=== PATIENT | female | born 1955 | race Caucasian/White ===

== ENCOUNTER → 2017-10-17 | Outpatient (CLI) | payer OTHER ==
[~2017-10-17] MED LIST: AMLO5TAB2 PO; ASPI-621 PO; CALC1CAP8 PO; LEVO112T4 PO; LISI-170 PO; NAPR1TAB21 PO; PRAV20TA2 PO
[2017-10-17 13:39] LABS: MICROSCOPIC NOT IND
[2017-10-17 13:43] LABS: BASOPHILS # (AUTO) 0.03 x10^3/uL (0-0.1); BASOPHILS % (AUTO) 1 % (0-1); EOSINOPHILS # (AUTO) 0.04 x10^3/uL (0-0.4); EOSINOPHILS % (AUTO) 1 % (1-7); LYMPHOCYTES # (AUTO) 0.85 x10^3/uL (1-3.4); LYMPHOCYTES % (AUTO) 16 % (22-44); MD NO; MEAN CORPUSCULAR HEMOGLOBIN 32.4 pg (27.0-34.8); MEAN CORPUSCULAR HGB CONC 34.6 g/dL (32.4-35.8); MEAN CORPUSCULAR VOLUME 93.6 fL (80-100); MEAN PLATELET VOLUME 7.9 fL (7.4-10.4); MONOCYTES # (AUTO) 0.61 x10^3/uL (0.2-0.8); MONOCYTES % (AUTO) 12 % (2-9); NEUTROPHILS # (AUTO) 3.71 x10^3/uL (1.8-6.8); NEUTROPHILS % (AUTO) 71 % (42-75); PLATELET COUNT 248 x10^3/uL (130-400); RED BLOOD COUNT 4.37 x10^6/uL (3.82-5.3); RED CELL DISTRIBUTION WIDTH 13.2 % (9.6-15.2)
[2017-10-17 13:48] LABS: INTERNATIONAL NORMALIZED RATIO 0.99 (0.93-1.1); PROTHROMBIN TIME 10.2 Seconds (9.6-11.5)
[2017-10-17 13:49] LABS: ALBUMIN 4.1 g/dL (3.4-5.0); ANION GAP 8 mmol/L (5-15); CHLORIDE 103 mmol/L (98-107)
[2017-10-17 13:49] LABS: CULTURE INDICATED? NO
[2017-10-17 13:52] LABS: ALANINE AMINOTRANSFERASE 21 U/L (12-78); ALKALINE PHOSPHATASE 80 U/L (45-117); BILIRUBIN,TOTAL 0.6 mg/dL (0.2-1.0); CREATININE 0.99 mg/dL (0.55-1.02); TOTAL PROTEIN 7.6 g/dL (6.4-8.2)
[2017-10-17 13:55] LABS: HEMOGLOBIN A1C 5.5 % (4.2-6.3)
== END | disposition home or self-care (01) ==
LOC: STAR 12:23
PROVIDERS: ATTEND Orthopaedic Surgery
DX: Z01.818 Encounter for other preprocedural examination (principal); M16.0 Bilateral primary osteoarthritis of hip
CPT/HCPCS: 36415; 80053; 81003; 83036; 85025; 85610; 85730; 87081; 87806; 93005; G0475

== ENCOUNTER 2017-10-21 09:28 | Inpatient (IN) | payer OTHER ==
[~2017-10-21] VITALS: Ht 165.1 cm; Wt 63.1 kg
[~2017-10-21 09:28] MED LIST changes: +EPINEPHRINE 1 MG/ML, 1ML ONE; +KETOROLAC 60 MG/2 ML ONE; +ROPIvacaine/PF 0.2%, 20 ML ONE; +TRANEXAMIC ACID 100 MG/ML, 10ML ONE
[2017-10-21] MEDS ORDERED: LACTATED RINGERS 1,000 ML IV SCH (10:04)
[2017-10-21 10:07] VITALS: BP 130/78
[2017-10-21] MEDS ORDERED: MIDAZOLAM 1 MG/ML, 2ML ONE (10:25)
[2017-10-21] MEDS ORDERED: FENTANYL PF 250 MCG/5ML ONE (10:25)
[2017-10-21] MEDS ORDERED: GABAPENTIN 300 MG CAPSULE PO ONE (10:30)
[2017-10-21] MEDS ORDERED: ACETAMINOPHEN 500 MG TABLET PO ONE (10:30)
[2017-10-21] MEDS: D5%-0.45NACL+KCL 20MEQ 1,000 ML IV SCH ×2 (12:05→21:35)
[2017-10-21] MEDS ORDERED: ONDANSETRON 2MG/ML, 2ML ONE (12:07)
[2017-10-21] MEDS ORDERED: DEXAMETHASONE 4 MG/ML, 1ML ONE (12:07)
[2017-10-21] MEDS ORDERED: GLYCOPYRROLATE 0.2MG/1ML, 5ML ONE (12:07)
[2017-10-21] MEDS ORDERED: PROPOFOL 10 MG/ML, 20ML ONE (12:07)
[2017-10-21] MEDS ORDERED: NEOSTIGMINE 1 MG/ML, 10ML ONE (12:07)
[2017-10-21] MEDS ORDERED: CEFAZOLIN 1,000 MG ONE (12:07)
[2017-10-21] MEDS ORDERED: ROCURONIUM 10 MG/ML,10ML ONE (12:07)
[2017-10-21] MEDS ORDERED: HYDROmorphone 1 MG/ML, 1ML IV PRN (12:30)
[2017-10-21] MEDS ORDERED: MAGNESIUM HYDROXIDE 8%, 30ML UDC PO PRN (12:30)
[2017-10-21] MEDS ORDERED: DIPHENHYDRAMINE 50 MG CAPSULE PO PRN (12:30)
[2017-10-21] MEDS ORDERED: ONDANSETRON 4 MG TABLET PO PRN (12:30)
[2017-10-21] MEDS ORDERED: ONDANSETRON 2MG/ML, 2ML IV PRN (12:30)
[2017-10-21] MEDS ORDERED: ALUMINUM/MAG/SIMETHICONE 30 ML UDC PO PRN (12:30)
[2017-10-21] MEDS ORDERED: TRANEXAMIC ACID 1,000 MG in SODIUM CHLORIDE 0.9% 100 ML IVPB ONE (12:30)
[2017-10-21] MEDS ORDERED: PROMETHAZINE 25 MG/ML, 1ML IM PRN (12:30)
[2017-10-21] MEDS ORDERED: SENNA/DOCUSATE TABLET PO PRN (12:30)
[2017-10-21] MEDS ORDERED: PROMETHAZINE 12.5 MG SUPP PR PRN (12:30)
[2017-10-21] MEDS ORDERED: HYDROmorphone 2 MG/ML, 1ML ONE (13:52)
[2017-10-21] MEDS ORDERED: OXYcodone 5 MG/5 ML ORAL.SOL UDC ONE (13:52)
[2017-10-21] MEDS: HYDROmorphone 1 MG/ML, 1ML IV PRN ×2 (13:56→14:07)
[2017-10-21] MEDS ORDERED: FENTANYL PF 100 MCG/2ML IV PRN (14:00)
[2017-10-21] MEDS ORDERED: LORazepam 2 MG/ML, 1ML IVPush PRN (14:00)
[2017-10-21] MEDS ORDERED: ALBUTEROL SULFATE 2.5 MG/3 ML NPPB PRN (14:00)
[2017-10-21] MEDS ORDERED: MEPERIDINE/PF 25MG/0.5ML IVPush PRN (14:00)
[2017-10-21] MEDS ORDERED: OXYcodone 5 MG/5 ML ORAL.SOL UDC PO PRN (14:00)
[2017-10-21] MEDS ORDERED: LABETALOL 5MG/ML, 20ML IV PRN (14:00)
[2017-10-21] MEDS ORDERED: hydrALAzine 20 MG/ML, 1ML IV PRN (14:00)
[2017-10-21] MEDS ORDERED: PROMETHAZINE 25 MG/ML, 1ML IV PRN (14:00)
[2017-10-21] MEDS ORDERED: CEFAZOLIN PMX 1GM/50ML 50 ML IVPB SCH (18:30)
[2017-10-21 19:00] VITALS: BP 115/78
[2017-10-21] MEDS ORDERED: PRAVASTATIN 20 MG TABLET PO SCH (21:00)
[2017-10-21] MEDS: DOCUSATE 100 MG CAPSULE PO SCH (21:35)
[2017-10-21] MEDS: CEFAZOLIN PMX 1GM/50ML 50 ML IVPB SCH (21:35)
[2017-10-21] MEDS: ACETAMINOPHEN 325 MG TABLET PO PRN (21:36)
[2017-10-21] MEDS: OXYcodone IR 5MG TABLET PO PRN (21:36)
[2017-10-22 00:05] VITALS: BP 102/64
[2017-10-22] MEDS: ACETAMINOPHEN 325 MG TABLET PO PRN (03:12)
[2017-10-22] MEDS: OXYcodone IR 5MG TABLET PO PRN ×2 (03:12→08:22)
[2017-10-22 04:10] VITALS: BP 114/69
[2017-10-22] MEDS: CEFAZOLIN PMX 1GM/50ML 50 ML IVPB SCH (05:33)
[2017-10-22] MEDS ORDERED: LEVOTHYROXINE 112 MCG TABLET PO SCH (06:00)
[2017-10-22] MEDS ORDERED: ASPIRIN 81 MG TABLET EC PO SCH (06:00)
[2017-10-22] MEDS ORDERED: DEXAMETHASONE 4 MG/ML, 1ML IVPush SCH (06:00)
[2017-10-22] MEDS: D5%-0.45NACL+KCL 20MEQ 1,000 ML IV SCH (07:40)
[2017-10-22] MEDS: DOCUSATE 100 MG CAPSULE PO SCH (08:12)
[2017-10-22] MEDS ORDERED: ASPI-515 PO (08:31)
[2017-10-22] MEDS ORDERED: DOCU-131 PO (08:32)
[2017-10-22] MEDS ORDERED: ONDA4TAB10 PO (08:33)
[2017-10-22] MEDS ORDERED: CELE200C PO (08:34)
[2017-10-22] MEDS ORDERED: TRAM50TA2 PO (08:34)
[2017-10-22] MEDS ORDERED: OXYC5TAB3 PO (08:36)
[2017-10-22] MEDS ORDERED: TAMSULOSIN 0.4 MG CAP.ER.24H PO SCH (09:00)
[2017-10-22] MEDS ORDERED: AMLODIPINE 5 MG TABLET PO SCH (09:00)
[2017-10-22] MEDS ORDERED: LISINOPRIL 20 MG TABLET PO SCH (09:00)
[2017-10-22 10:18] VITALS: BP 101/64
[2017-10-22] MEDS ORDERED: KETOROLAC 30 MG/1 ML IV SCH (12:30)
== END 2017-10-22 12:30 | disposition home or self-care (01) | DRG 470 ==
LOC: ORIP 09:28 → 4NOR 14:47 → DCLOUNGE 10-22 12:07
PROVIDERS: ADMIT Orthopaedic Surgery; ATTEND Orthopaedic Surgery
PROC: 0SRB04Z Replacement of Left Hip Joint with Ceramic on Polyethylene Synthetic Substitute, Open Approach (ICD-10-PCS; principal; 2017-10-21 11:45)
DX: M16.0 Bilateral primary osteoarthritis of hip (principal); I10 Essential (primary) hypertension; E78.5 Hyperlipidemia, unspecified; E03.9 Hypothyroidism, unspecified
CPT/HCPCS: 36415; 72170; 73501; 73502; J3490; 85014; 85018; 86850; 86900; C1713; J0171; J0690; J1100; J1170; J1885; J2250; J2405; J2704; J2710; J2795; J3010; Q0162; C1776; J3480; J7120

== ENCOUNTER → 2018-01-29 | Outpatient (CLI) | payer OTHER ==
[~2018-01-29] MED LIST changes: +AMLO-150 PO; -AMLO5TAB2 PO; +ASPI-515 PO; -ASPI-621 PO; +ASPI81TA45 PO; +CELE200C PO; +DOCU-131 PO; -EPINEPHRINE 1 MG/ML, 1ML ONE; -KETOROLAC 60 MG/2 ML ONE; +ONDA4TAB10 PO; +OXYC5TAB3 PO; -ROPIvacaine/PF 0.2%, 20 ML ONE; +TRAM50TA2 PO; -TRANEXAMIC ACID 100 MG/ML, 10ML ONE
== END | disposition home or self-care (01) ==
LOC: CFH 14:27
PROVIDERS: ATTEND Nurse Practitioner
DX: Z12.31 Encounter for screening mammogram for malignant neoplasm of breast (principal)
CPT/HCPCS: 77063; 77067

== ENCOUNTER 2019-02-20 09:37 | Outpatient (CLI) | payer BC | END 2019-02-20 23:59 | disposition home or self-care (01) | LOC: CFH 09:37 | PROVIDERS: ATTEND Nurse Practitioner | DX: Z12.31 Encounter for screening mammogram for malignant neoplasm of breast (principal); N64.89 Other specified disorders of breast | CPT/HCPCS: 77067 ==

== ENCOUNTER → 2020-02-05 | Outpatient (CLI) | payer MEDICARE | END | disposition home or self-care (01) | LOC: CFH 09:10 | PROVIDERS: ATTEND Nurse Practitioner | DX: Z12.31 Encounter for screening mammogram for malignant neoplasm of breast (principal); N95.9 Unspecified menopausal and perimenopausal disorder; M85.80 Other specified disorders of bone density and structure, unspecified site; N95.8 Other specified menopausal and perimenopausal disorders; Z96.642 Presence of left artificial hip joint | CPT/HCPCS: 77063; 77067; 77080 ==